=== PATIENT | female | born 1930 | race Caucasian/White ===

== ENCOUNTER 2018-02-27 22:47 | Emergency (ER) | payer MEDICARE ==
[~2018-02-27] VITALS: Ht 152.4 cm; Wt 43.0 kg
[~2018-02-27 22:47] MED LIST: CEPH500C5 PO
[2018-02-27] MEDS ORDERED: cloNIDine 0.1 mg tablet PO ONE (23:30)
[2018-02-27 23:44] LABS: BASOPHILS % (AUTO) 0.6 % (0-1); EOSINOPHILS # (AUTO) 0.3 X10'3 (0-0.9); EOSINOPHILS % (AUTO) 3.6 % (0-6); HEMOGLOBIN 14.3 g/dl (12.0-16.0); LYMPHOCYTES % (AUTO) 26.3 % (21-51); MEAN CORPUSCULAR HEMOGLOBIN 32.7 PG (27.0-31.0); MEAN CORPUSCULAR HGB CONC 33.3 % (33.0-36.5); MEAN CORPUSCULAR VOLUME 98.2 FL (78-98); MEAN PLATELET VOLUME 8.4 FL (7.4-10.4); MONOCYTES # (AUTO) 0.8 X10'3 (0-0.9); MONOCYTES % (AUTO) 10.5 % (2-12); NEUTROPHILS # (AUTO) 4.5 X10'3 (1.8-7.7); PLATELET COUNT 258 X10'3 (140-440); RED BLOOD COUNT 4.38 X10'6 (4.20-5.60); WHITE BLOOD COUNT 7.6 X10'3 (4.5-11.0)
[2018-02-28 00:15] LABS: ALANINE AMINOTRANSFERASE 25 U/L (12-78); ALBUMIN 3.4 G/DL (3.4-5.0); ALBUMIN/GLOBULIN RATIO 0.8 (1.1-1.5); ALKALINE PHOSPHATASE 92 IU/L (46-116); ANION GAP 12 (8-16); ASPARTATE AMINO TRANSFERASE 30 U/L (10-37); BILIRUBIN,TOTAL 0.4 MG/DL (0.1-1.0); BLOOD UREA NITROGEN 16 MG/DL (7-18); BUN/CREATININE RATIO 17.8 (6.6-38.0); CALCIUM 9.3 MG/DL (8.5-10.1); CHLORIDE 105 MMOL/L (99-107); GLUCOSE 96 MG/DL (70-104); POTASSIUM 3.8 MMOL/L (3.5-5.1); SODIUM 142 MMOL/L (135-145); TOTAL CARBON DIOXIDE 24.9 MMOL/L (24-32); TOTAL PROTEIN 7.7 G/DL (6.4-8.2); eGFR 59 ML/MIN
[2018-02-28 01:35] LABS: CLARITY,URINE CLEAR (Clear); COLOR,URINE YELLOW (Yellow); GLUCOSE, URINE NEGATIVE (Neg); KETONES,URINE TRACE mg/dl (Neg); LEUKOCYTE ESTERASE ,URINE NEGATIVE (Neg); NITRITES, URINE NEGATIVE (Neg); OCCULT BLOOD,URINE NEGATIVE (Neg); PROTEIN,URINE NEGATIVE (Neg); UROBILINOGEN,URINE 0.2 E.U/dL (0.2-1.0)
[2018-02-28 01:36] LABS: UA COLLECTION TYPE CLN CATCH MIDSTREAM
[2018-02-28] MEDS ORDERED: aspirin 325mg tablet PO ONE (03:15)
[2018-02-28] MEDS ORDERED: MECL12.584 PO (03:26)
[2018-02-28 03:47] VITALS: BP 122/78
== END 2018-02-28 03:52 | disposition home or self-care (01) ==
LOC: ER 22:48
DX: I63.9 Cerebral infarction, unspecified (principal); D17.0 Benign lipomatous neoplasm of skin and subcutaneous tissue of head, face and neck; N39.0 Urinary tract infection, site not specified; I48.91 Unspecified atrial fibrillation; I10 Essential (primary) hypertension; Z90.49 Acquired absence of other specified parts of digestive tract; Z86.73 Personal history of transient ischemic attack (TIA), and cerebral infarction without residual deficits; Z88.5 Allergy status to narcotic agent; Z79.899 Other long term (current) drug therapy
CPT/HCPCS: 36415; 70450; 71045; 80053; 81003; 84484; 85025; 93005; 99285; J7030

== ENCOUNTER 2018-03-06 08:48 | Inpatient (IN) | payer MEDICARE ==
[~2018-03-06] VITALS: Ht 152.4 cm; Wt 42.7 kg
[~2018-03-06 08:48] MED LIST changes: +MECL12.584 PO
[2018-03-06] MEDS ORDERED: normal saline 1000ML IV soln IVB ONE (09:15)
[2018-03-06] MEDS ORDERED: SIME62.5 PO (09:33)
[2018-03-06] MEDS ORDERED: NEOM28.37 TOP (09:33)
[2018-03-06] MEDS ORDERED: CHOL10002 PO (09:33)
[2018-03-06] MEDS ORDERED: IBUP-1984 PO (09:33)
[2018-03-06] MEDS ORDERED: GUAI237S46 PO (09:33)
[2018-03-06] MEDS ORDERED: POLY17PO10 PO (09:33)
[2018-03-06] MEDS ORDERED: MAGN400O6 PO (09:33)
[2018-03-06] MEDS ORDERED: DOCU-261 PO (09:33)
[2018-03-06] MEDS ORDERED: MENT3.5O TP (09:33)
[2018-03-06] MEDS ORDERED: ACET-812 PO (09:33)
[2018-03-06] MEDS ORDERED: ACET-2319 PO (09:33)
[2018-03-06] MEDS ORDERED: LEVO5DRO EACHEYE (09:33)
[2018-03-06] MEDS ORDERED: BISM262O PO (09:33)
[2018-03-06] MEDS ORDERED: DOXY100C76 PO (09:33)
[2018-03-06] MEDS ORDERED: ASPI81TA52 PO (09:33)
[2018-03-06] MEDS ORDERED: NA P133E4 RC (09:33)
[2018-03-06] MEDS ORDERED: BISA10SU60 RC (09:33)
[2018-03-06 09:51] LABS: BASOPHILS % (AUTO) 0.5 % (0-1); EOSINOPHILS # (AUTO) 0.2 X10'3 (0-0.9); EOSINOPHILS % (AUTO) 1.7 % (0-6); HEMATOCRIT 45.2 % (35.0-45.0); HEMOGLOBIN 15.3 g/dl (12.0-16.0); LYMPHOCYTES # (AUTO) 1.5 X10'3 (1.1-4.8); LYMPHOCYTES % (AUTO) 16.6 % (21-51); MEAN CORPUSCULAR HEMOGLOBIN 33.4 PG (27.0-31.0); MEAN CORPUSCULAR HGB CONC 33.8 % (33.0-36.5); MEAN CORPUSCULAR VOLUME 98.9 FL (78-98); MEAN PLATELET VOLUME 8.4 FL (7.4-10.4); MONOCYTES # (AUTO) 0.7 X10'3 (0-0.9); MONOCYTES % (AUTO) 7.6 % (2-12); NEUTROPHILS # (AUTO) 6.8 X10'3 (1.8-7.7); NEUTROPHILS % (AUTO) 73.6 % (42-75); PLATELET COUNT 369 X10'3 (140-440); RED BLOOD COUNT 4.57 X10'6 (4.20-5.60); RED CELL DISTRIBUTION WIDTH 15.8 % (11.5-14.5); WHITE BLOOD COUNT 9.3 X10'3 (4.5-11.0)
[2018-03-06 10:06] LABS: CLARITY,URINE SLIGHTLY CLOUDY (Clear); COLOR,URINE YELLOW (Yellow); GLUCOSE, URINE NEGATIVE (Neg); KETONES,URINE NEGATIVE (Neg); LEUKOCYTE ESTERASE ,URINE NEGATIVE (Neg); NITRITES, URINE NEGATIVE (Neg); OCCULT BLOOD,URINE NEGATIVE (Neg); PH,URINE 5.5 (4.8-8.0); PROTEIN,URINE TRACE mg/dl (Neg); UA COLLECTION TYPE STRAIGHT CATH; UROBILINOGEN,URINE 0.2 E.U/dL (0.2-1.0)
[2018-03-06 10:06] LABS: ALANINE AMINOTRANSFERASE 27 U/L (12-78); ALBUMIN 3.4 G/DL (3.4-5.0); ALBUMIN/GLOBULIN RATIO 0.8 (1.1-1.5); ALKALINE PHOSPHATASE 80 IU/L (46-116); ANION GAP 8 (8-16); ASPARTATE AMINO TRANSFERASE 27 U/L (10-37); BILIRUBIN,TOTAL 0.8 MG/DL (0.1-1.0); BLOOD UREA NITROGEN 26 MG/DL (7-18); BUN/CREATININE RATIO 21.3 (6.6-38.0); CALCIUM 9.3 MG/DL (8.5-10.1); CHLORIDE 107 MMOL/L (99-107); CREATININE 1.22 MG/DL (0.40-0.90); GLUCOSE 115 MG/DL (70-104); POTASSIUM 3.5 MMOL/L (3.5-5.1); SODIUM 142 MMOL/L (135-145); TOTAL CARBON DIOXIDE 26.6 MMOL/L (24-32); TOTAL PROTEIN 7.6 G/DL (6.4-8.2); eGFR 42 ML/MIN
[2018-03-06 10:12] LABS: BACTERIA,URINE NONE SEEN /HPF (Neg); COARSE GRANULAR CAST 0-3 /LPF (NEGATIVE); HYALINE CASTS 0-3 /LPF (NEGATIVE); MUCUS STRANDS NONE SEEN /LPF (Neg); RBC,URINE NONE SEEN /HPF (0-2); SQUAMOUS EPITHELIAL CELL,UR FEW /LPF (FEW); TRANSITIONAL EPI CELLS,URINE FEW /HPF; WBC,URINE 0-4 /HPF (0-4)
[2018-03-06 10:15] LABS: LIPASE 210 U/L (73-393)
[2018-03-06 10:18] LABS: PROTHROMBIN TIME 10.8 SECONDS (9.0-12.0)
[2018-03-06] MEDS ORDERED: piperacillin/tazo 3.375gm/50ml 50 ML IV ONE (12:35)
[2018-03-06] MEDS: normal saline 1000ml 1,000 ML IV SCH ×2 (14:42→17:17)
[2018-03-06] MEDS ORDERED: nitroGLYCERIN 0.4mg SUBLingual tab SL PRN (14:45)
[2018-03-06] MEDS ORDERED: ondansetron/PF 4mg/2ml inj IV PRN (14:45)
[2018-03-06 17:15] VITALS: BP 172/75
[2018-03-06 18:00] VITALS: BP 153/54
[2018-03-06] MEDS ORDERED: LEVOBUNOLOL EACHEYE SCH (20:00)
[2018-03-06] MEDS ORDERED: meclizine 12.5mg tablet PO PRN (20:05)
[2018-03-06] MEDS: heparin, porcine 5000 units/ml vial SQ SCH (20:09)
[2018-03-06] MEDS: metoprolol tartrate 12.5mg (1/2 tablet) PO SCH (20:09)
[2018-03-06] MEDS: LEVOBUNOLOL 0.5% EACHEYE SCH (20:21)
[2018-03-06 23:00] VITALS: BP 128/77
[2018-03-07 02:00] VITALS: BP 148/79
[2018-03-07 02:31] LABS: BASOPHILS # (AUTO) 0.2 X10'3 (0-0.2); BASOPHILS % (AUTO) 1.7 % (0-1); EOSINOPHILS # (AUTO) 0.2 X10'3 (0-0.9); EOSINOPHILS % (AUTO) 2.1 % (0-6); HEMATOCRIT 37.4 % (35.0-45.0); HEMOGLOBIN 12.6 g/dl (12.0-16.0); LYMPHOCYTES # (AUTO) 2.5 X10'3 (1.1-4.8); LYMPHOCYTES % (AUTO) 25.3 % (21-51); MEAN CORPUSCULAR HEMOGLOBIN 33.7 PG (27.0-31.0); MEAN CORPUSCULAR HGB CONC 33.8 % (33.0-36.5); MEAN CORPUSCULAR VOLUME 99.7 FL (78-98); MEAN PLATELET VOLUME 8.7 FL (7.4-10.4); MONOCYTES # (AUTO) 1.2 X10'3 (0-0.9); MONOCYTES % (AUTO) 12.1 % (2-12); NEUTROPHILS # (AUTO) 5.7 X10'3 (1.8-7.7); NEUTROPHILS % (AUTO) 58.8 % (42-75); PLATELET COUNT 286 X10'3 (140-440); RED BLOOD COUNT 3.75 X10'6 (4.20-5.60); RED CELL DISTRIBUTION WIDTH 15.9 % (11.5-14.5); WHITE BLOOD COUNT 9.8 X10'3 (4.5-11.0)
[2018-03-07 02:45] LABS: ALBUMIN 2.7 G/DL (3.4-5.0); ANION GAP 9 (8-16); BLOOD UREA NITROGEN 19 MG/DL (7-18); BUN/CREATININE RATIO 23.5 (6.6-38.0); CALCIUM 8.5 MG/DL (8.5-10.1); CHLORIDE 111 MMOL/L (99-107); CREATININE 0.81 MG/DL (0.40-0.90); GLUCOSE 87 MG/DL (70-104); SODIUM 146 MMOL/L (135-145); TOTAL CARBON DIOXIDE 25.6 MMOL/L (24-32); eGFR 67 ML/MIN
[2018-03-07 03:04] LABS: TROPONIN I 0.83 NG/ML (0.0-0.05)
[2018-03-07] MEDS ORDERED: potassium Cl 20 mEq SR tablet PO PRN (03:10)
[2018-03-07] MEDS ORDERED: magnesium Cl slow-release 64mg tablet PO PRN (03:10)
[2018-03-07] MEDS ORDERED: magnesium 4gm in 100ml NS 100 ML IV PRN (03:10)
[2018-03-07] MEDS ORDERED: magnesium 2GM in 50ml NS 50 ML IV PRN (03:10)
[2018-03-07] MEDS ORDERED: potassium Cl 40MEQ/NS 500ml 500 ML IV PRN ×2 (03:10)
[2018-03-07] MEDS: potassium Cl 20 mEq SR tablet PO PRN ×2 (03:37→08:27)
[2018-03-07 06:00] VITALS: BP 154/75
[2018-03-07] MEDS: LEVOBUNOLOL 0.5% EACHEYE SCH ×2 (08:22→19:55)
[2018-03-07] MEDS: metoprolol tartrate 12.5mg (1/2 tablet) PO SCH ×2 (08:24→19:54)
[2018-03-07] MEDS: heparin, porcine 5000 units/ml vial SQ SCH ×2 (08:26→19:54)
[2018-03-07] MEDS ORDERED: bisacodyl 10mg suppository rectal RC PRN (14:20)
[2018-03-07 15:00] VITALS: BP 178/93
[2018-03-07] MEDS: normal saline 1000ml 1,000 ML IV SCH (18:03)
[2018-03-07 19:30] VITALS: BP 159/92
[2018-03-07] MEDS: docusate sod 100mg capsule PO SCH (19:54)
[2018-03-07] MEDS: neomy sulf/bacitrac zn/polymixin b oint 14.2 gm tube TP SCH (19:55)
[2018-03-07] MEDS ORDERED: LEVOBUNOLOL 0.5% EACHEYE SCH (20:00)
[2018-03-07 23:00] VITALS: BP 159/76
[2018-03-08 03:00] VITALS: BP 170/89
[2018-03-08 05:30] VITALS: BP 157/95
[2018-03-08 05:32] LABS: BASOPHILS # (AUTO) 0.1 X10'3 (0-0.2); BASOPHILS % (AUTO) 0.8 % (0-1); EOSINOPHILS # (AUTO) 0.2 X10'3 (0-0.9); EOSINOPHILS % (AUTO) 1.9 % (0-6); HEMATOCRIT 42.3 % (35.0-45.0); HEMOGLOBIN 14.4 g/dl (12.0-16.0); LYMPHOCYTES # (AUTO) 1.9 X10'3 (1.1-4.8); LYMPHOCYTES % (AUTO) 22.7 % (21-51); MEAN CORPUSCULAR HEMOGLOBIN 33.3 PG (27.0-31.0); MEAN CORPUSCULAR VOLUME 98.1 FL (78-98); MONOCYTES % (AUTO) 11.7 % (2-12); NEUTROPHILS # (AUTO) 5.3 X10'3 (1.8-7.7); NEUTROPHILS % (AUTO) 62.9 % (42-75); PLATELET COUNT 288 X10'3 (140-440); RED BLOOD COUNT 4.31 X10'6 (4.20-5.60); RED CELL DISTRIBUTION WIDTH 15.4 % (11.5-14.5); WHITE BLOOD COUNT 8.5 X10'3 (4.5-11.0)
[2018-03-08 05:42] LABS: ALBUMIN 3.1 G/DL (3.4-5.0); ANION GAP 11 (8-16); BLOOD UREA NITROGEN 11 MG/DL (7-18); BUN/CREATININE RATIO 15.7 (6.6-38.0); CALCIUM 8.8 MG/DL (8.5-10.1); CHLORIDE 107 MMOL/L (99-107); GLUCOSE 94 MG/DL (70-104); MAGNESIUM 1.9 MG/DL (1.5-2.4); POTASSIUM 3.6 MMOL/L (3.5-5.1); SODIUM 143 MMOL/L (135-145); TOTAL CARBON DIOXIDE 24.7 MMOL/L (24-32); eGFR 79 ML/MIN
[2018-03-08] MEDS: normal saline 1000ml 1,000 ML IV SCH ×2 (07:54→19:44)
[2018-03-08] MEDS: heparin, porcine 5000 units/ml vial SQ SCH ×2 (07:58→19:30)
[2018-03-08] MEDS: LEVOBUNOLOL 0.5% EACHEYE SCH ×2 (07:58→19:31)
[2018-03-08] MEDS: metoprolol tartrate 12.5mg (1/2 tablet) PO SCH (07:59)
[2018-03-08] MEDS: docusate sod 100mg capsule PO SCH ×2 (07:59→19:30)
[2018-03-08] MEDS ORDERED: cloNIDine 0.1 mg tablet PO PRN (08:00)
[2018-03-08] MEDS: neomy sulf/bacitrac zn/polymixin b oint 14.2 gm tube TP SCH ×2 (08:00→19:43)
[2018-03-08] MEDS: polyethylene glycol 3350 17gm powd pack PO SCH (08:00)
[2018-03-08] MEDS: metoprolol tartrate 25mg tablet PO SCH ×2 (08:32→19:30)
[2018-03-08] MEDS: acetaminophen 325mg tablet PO PRN ×2 (09:27→09:43)
[2018-03-08 11:00] VITALS: BP 136/62
[2018-03-08 15:00] VITALS: BP 136/70
[2018-03-08 19:00] VITALS: BP 109/54
[2018-03-08 23:00] VITALS: BP 125/65
[2018-03-09 03:00] VITALS: BP 122/67
[2018-03-09 05:28] LABS: BASOPHILS # (AUTO) 0.2 X10'3 (0-0.2); BASOPHILS % (AUTO) 1.4 % (0-1); EOSINOPHILS # (AUTO) 0.2 X10'3 (0-0.9); EOSINOPHILS % (AUTO) 1.5 % (0-6); HEMATOCRIT 41.2 % (35.0-45.0); HEMOGLOBIN 14.1 g/dl (12.0-16.0); LYMPHOCYTES # (AUTO) 2.8 X10'3 (1.1-4.8); LYMPHOCYTES % (AUTO) 23.5 % (21-51); MEAN CORPUSCULAR HEMOGLOBIN 33.7 PG (27.0-31.0); MEAN CORPUSCULAR HGB CONC 34.3 % (33.0-36.5); MEAN CORPUSCULAR VOLUME 98.5 FL (78-98); MEAN PLATELET VOLUME 9.1 FL (7.4-10.4); MONOCYTES # (AUTO) 1.3 X10'3 (0-0.9); MONOCYTES % (AUTO) 10.3 % (2-12); NEUTROPHILS # (AUTO) 7.7 X10'3 (1.8-7.7); NEUTROPHILS % (AUTO) 63.3 % (42-75); PLATELET COUNT 278 X10'3 (140-440); RED BLOOD COUNT 4.19 X10'6 (4.20-5.60); RED CELL DISTRIBUTION WIDTH 15.2 % (11.5-14.5); WHITE BLOOD COUNT 12.1 X10'3 (4.5-11.0)
[2018-03-09 05:43] LABS: ANION GAP 10 (8-16); BLOOD UREA NITROGEN 19 MG/DL (7-18); BUN/CREATININE RATIO 20.4 (6.6-38.0); CHLORIDE 106 MMOL/L (99-107); CREATININE 0.93 MG/DL (0.40-0.90); GLUCOSE 99 MG/DL (70-104); MAGNESIUM 1.9 MG/DL (1.5-2.4); POTASSIUM 3.7 MMOL/L (3.5-5.1); SODIUM 141 MMOL/L (135-145); TOTAL CARBON DIOXIDE 24.7 MMOL/L (24-32); eGFR 57 ML/MIN
[2018-03-09 07:00] VITALS: BP 107/64
[2018-03-09] MEDS: polyethylene glycol 3350 17gm powd pack PO SCH (07:42)
[2018-03-09] MEDS: LEVOBUNOLOL 0.5% EACHEYE SCH (07:42)
[2018-03-09] MEDS: metoprolol tartrate 25mg tablet PO SCH (07:42)
[2018-03-09] MEDS: docusate sod 100mg capsule PO SCH (07:43)
[2018-03-09] MEDS: heparin, porcine 5000 units/ml vial SQ SCH (07:43)
[2018-03-09] MEDS: neomy sulf/bacitrac zn/polymixin b oint 14.2 gm tube TP SCH (08:00)
[2018-03-09] MEDS ORDERED: donepezil 5mg tablet PO SCH (08:00)
[2018-03-09] MEDS: normal saline 1000ml 1,000 ML IV SCH (09:22)
[2018-03-09 11:00] VITALS: BP 150/84
[2018-03-09] MEDS ORDERED: DONE-46 PO (11:52)
[2018-03-09] MEDS ORDERED: ATOR20TA66 PO (11:53)
== END 2018-03-09 13:15 | disposition home health service (06) | DRG 65 ==
LOC: ER 08:48 → ED HOLD 14:42 → PCU 3S 16:55
PROVIDERS: ADMIT Internal Medicine; ATTEND Family Medicine
DX: I63.9 Cerebral infarction, unspecified (principal); Z68.1 Body mass index [BMI] 19.9 or less, adult; I95.9 Hypotension, unspecified; I48.91 Unspecified atrial fibrillation; E87.6 Hypokalemia; M19.90 Unspecified osteoarthritis, unspecified site; I10 Essential (primary) hypertension; F03.90 Unspecified dementia, unspecified severity, without behavioral disturbance, psychotic disturbance, mood disturbance, and anxiety; Z90.49 Acquired absence of other specified parts of digestive tract; Z88.5 Allergy status to narcotic agent; Z79.899 Other long term (current) drug therapy; Z79.82 Long term (current) use of aspirin; Z86.73 Personal history of transient ischemic attack (TIA), and cerebral infarction without residual deficits
CPT/HCPCS: 36415; 70551; 71045; 74176; 80048; 80053; 81001; 83605; 83690; 83735; 84443; 84484; 85025; 85610; 87040; 87070; 93005; 93306; 93880; 96361; 96365; 97116; 97162; 97530; 99285; A4649; A6212; J1644; J2543; J7030; J8597

== ENCOUNTER → 2018-11-03 | Emergency (ER) | payer MEDICARE ==
[~2018-11-03] VITALS: Ht 152.4 cm; Wt 50.0 kg
[~2018-11-03] MED LIST changes: +ASPI81TA52 PO; +ATOR20TA66 PO; +BISA10SU60 RC; +BISM262O PO; -CEPH500C5 PO; +CHOL10002 PO; +DOCU-261 PO; +DONE-46 PO; +LEVO5DRO EACHEYE; +MAGN400O6 PO; -MECL12.584 PO; +MENT3.5O TP; +NEOM28.37 TOP
[2018-11-03 20:21] VITALS: BP 140/110
== END | disposition home or self-care (01) ==
LOC: ER 18:35
DX: S01.81XA Laceration without foreign body of other part of head, initial encounter (principal); I48.91 Unspecified atrial fibrillation; I10 Essential (primary) hypertension; F03.90 Unspecified dementia, unspecified severity, without behavioral disturbance, psychotic disturbance, mood disturbance, and anxiety; Z90.49 Acquired absence of other specified parts of digestive tract; Z88.6 Allergy status to analgesic agent; Z79.82 Long term (current) use of aspirin; Z79.899 Other long term (current) drug therapy; Z86.73 Personal history of transient ischemic attack (TIA), and cerebral infarction without residual deficits; W01.0XXA Fall on same level from slipping, tripping and stumbling without subsequent striking against object, initial encounter; Y93.89 Activity, other specified; Y92.89 Other specified places as the place of occurrence of the external cause; Y99.8 Other external cause status
CPT/HCPCS: 12013; 99284